=== PATIENT | female | born 2000 | race Caucasian/White ===

== ENCOUNTER 2024-04-08 21:35 | Emergency (ER) | payer MEDICAID, SELFPAY ==
[2024-04-08 22:05] VITALS: BP 144/84; PULSE 87; RESP 16; TEMP 37; O2SAT 96; BMI 34.0
[2024-04-08 22:09] LABS: Appearance Urine Clear (Clear); Bilirubin Urine Negative (Negative); Blood Urine 1+ (Negative); Color Urine Yellow (Yellow); Glucose Urine Negative (Negative); Ketones Urine Negative (Negative); Leukocyte Esterase Urine Negative (Negative); Nitrite Urine Negative (Negative); Protein Urine Negative (Negative); Specific Gravity Urine 1.015 (1.000-1.030); Urobilinogen Urine 0.2 (0.2-1.0)
[2024-04-08 22:14] LABS: RBC Urine 0-2 (0-2); WBC Urine 0-2 (0-5)
--- NOTE | 2024-04-08 22:24 | CRLHL7_ITS ---
For Patients: As a result of the Century Cures Act, medical imaging exams and procedure reports are released immediately into your electronic medical record. You may view this report before your referring provider. If you have questions, please contact your health care provider. INDICATION: Lower abdominal pain TECHNIQUE: CT abdomen and pelvis acquired with 89 cc of Isovue 370 IV contrast. COMPARISON: None. FINDINGS: Lower chest: Unremarkable. Liver: Unremarkable. Normal in size and attenuation. No suspicious masses. Gallbladder and bile ducts: Unremarkable. No stones or inflammation. No biliary dilatation. Pancreas: Unremarkable. No mass or inflammation. Spleen: Unremarkable. Normal in size. No masses. Adrenal glands: Unremarkable. No nodules. Kidneys: Unremarkable. No suspicious masses, stones, or hydronephrosis. GI tract: Unremarkable. Normal in caliber. No sign of mass or inflammation. Normal appendix. Vasculature: Abdominal aorta is normal in caliber. Mesenteric arteries are patent. Lymph nodes: No lymphadenopathy. Peritoneum/Abdominal Wall: Unremarkable. No free air or significant free fluid. Pelvis: Crenulated right ovarian cyst/follicle with a small volume of simple free fluid in the pelvic cul-de-sac. Bones: Unremarkable for age. IMPRESSION: 1. Crenulated right ovarian cyst the follicle. The adjacent small volume of free fluid in the pelvis suggest recent rupture. 2. No other acute findings within the abdomen and pelvis. Normal appendix. Please note that all CT scans at this facility use dose modulation, iterative reconstruction, and/or weight-based dosing when appropriate to reduce radiation dose to as low as reasonably achievable. Dictated by Sander Herrera MD @ 04/08/2024 11:17:34 PM (Electronically Signed)
[2024-04-08 22:41] LABS: Ur HCG Qualitative* Negative (Negative)
--- NOTE | 2024-04-08 22:51 | ED_ITS ---
HPI - Abdominal Pain General Date Seen: 04/08/24 Chief Complaint: Abdominal Pain Stated Complaint: Lower abdominal/pelvic pain Time Seen by Provider: 04/08/24 22:13 Source: patient Mode of arrival: ambulatory Limitations: no limitations History of Present Illness HPI narrative: Patient is a 23-year-old female presenting to the emergency department for lower abdominal pain. She states for the past week she has been having this lower abdominal pain. She described as a cramping sensation that radiates into her bilateral pelvis. Usually worse in the right lower quadrant though. Symptoms usually last about [address] She had an E visit in told may be constipation and was told to take MiraLax but she is not taking it at all yet. She did have a bowel movement today though she said during the bowel movement she had the sharp pain again this time it lasted longer and she states it felt like does get a make her pass out. Symptoms then resolved. She is now describes the pain as a 5/10 cramping sensation. Will have associated nausea with the pain but has not had any vomiting. Denies chest pain, shortness of breath, vaginal bleeding, vaginal discharge, diarrhea, dysuria, fevers, chills, headache. No other concerns noted. Review of Systems Status of ROS Reports: 10 or more systems reviewed and unremarkable except as noted in History and below [facility] Social History Smoking Status: Former smoker What tobacco products do you use: cigarettes Do you use any of these nicotine containing products: Vaping Products How often do you have a drink containing alcohol: 2-4 times a month AUDIT-C Alcohol total score: 2 Non-prescribed substance use: denies use Exam Narrative: Exam Narrative: Const: Well-nourished, Well-developed, in mild distress Eyes: PERRL, no conjunctival injection, and symmetrical lids HENT: Atraumatic external nose and ears. Moist mucous membranes. Neck: Symmetric, trachea midline, No thyromegaly. CVS: RRR, No murmurs or gallops. Peripheral pulses 2+ and equal in all extremities RESP: Unlabored respiratory effort. Clear to auscultation bilaterally. GI: Lower abdominal tenderness, Nondistended, No rebound or guarding. MSK:Extremities w/o deformity, Normal Active ROM Skin: Warm, Dry. No rashes or lesions. Neuro: Normal Muscle tone, No focal neurological deficits. Psych: Awake, Alert, & Oriented x3. Appropriate mood and affect. Const: Vital Signs, click to edit/add: Vital Signs - 24 hr 04/08/24 22:05 Temperature 98.6 F Pulse Rate [Pulse Oximeter] 87 Respiratory Rate 16 Blood Pressure [Ri ght Upper Arm] 144/84 H Pulse Oximetry 96 Oxygen Delivery Me thod Room Air Course Vital Signs Vital signs: Initial Vital Signs Temperature 98.6 F 04/08/24 22:05 Temperature Source Temporal Artery Scan 04/08/24 22:05 Pulse Rate 87 04/08/24 22:05 Respiratory Rate 16 04/08/24 22:05 Blood Pressure 144/84 H 04/08/24 22:05 Blood Pressure Mean 104 04/08/24 22:05 Blood Pressure Position Sitting 04/08/24 22:05 Pulse Oximetry 96 04/08/24 22:05 Oxygen Delivery Method Room Air 04/08/24 22:05 Vital Signs Temperature 98.6 F 04/08/24 22:05 Pulse Rate 87 04/08/24 22:05 Respiratory Rate 16 04/08/24 22:05 Blood Pressure 144/84 H 04/08/24 22:05 Pulse Oximetry 96 04/08/24 22:05 Oxygen Delivery Method Room Air 04/08/24 22:05 Temperature 98.6 F 04/08/24 22:05 Pulse Rate 87 04/08/24 22:05 Respiratory Rate 16 04/08/24 22:05 Blood Pressure 144/84 H 04/08/24 22:05 Pulse Oximetry 96 04/08/24 22:05 Oxygen Delivery Method Room Air 04/08/24 22:05 MDM - Abdominal Pain MDM Narrative Medical decision making narrative: Patient is a 23-year-old female presenting to the emergency department for lower abdominal pain. Differential at this time fluids appendicitis, constipation, colitis. With how long symptoms have been going on for in seems unlikely to be an ovarian torsion even an intermittent torsion. With no previous surgery in [facility] seems unlikely. Location is not consistent with gallbladder, liver, pancreatitis, diverticulitis. Will do a CT scan with IV contrast to further evaluate and if that is nondiagnostic will consider ordering a ultrasound. Urinalysis, CBC, urine caught test, COVID/flu/RSV, CMP all ordered. Lab work all returned showing no concerning abnormalities. No signs of UTI. She is not . Viral swabs are negative. CT scan returned showing a right ovarian cyst likely ruptured. There is a a small volume of free fluid in the pelvis. This ruptured cyst is likely what the pain she described prior to arrival was. At this time I do not believe an ultrasound is necessary in the emergency department. Her ovaries are not large enough to be concerning for possible torsion. No signs of anemia. Informed her of the findings and told her to follow-up with OB Gy[facility]. She is agreeable to this plan. Lab Data Labs: Lab Results 04/08/24 04/08/24 04/08/24 Range/Units 22:05 22:24 22:25 WBC (4.50-11.00) K/uL RBC (4.00-5.20) m/uL Hgb (12.0-16.0) gm/dL Hct (33.0-51.0) % MCV (80-100) fL MCH (26-34) pg MCHC (32-36) gm/dL RDW Coeff of Jama (11.5-15.5) % Plt Count (140-440) K/uL Neut % (Auto) (42.0-72.0) % Lymph % (Auto) (20-44) % Bowie % (Auto) (0.0-11.0) % Eos % (Auto) (0.0-7.0) % Baso % (Auto) (0.0-3.0) % Neut # (Auto) (1.7-7.0) K/uL Lymph # (Auto) (0.90-2.90) K/uL Bowie # (Auto) (0.00-0.90) K/UL Eos # (Auto) (0.00-0.50) K/uL Baso # (Auto) (0.00-0.30) K/uL Abs Immat Gran (auto) (0.00-0.30) K/uL Imm/Tot Granulo (auto) % Sodium 137 (135-149) mmol/L Potassium 3.6 (3.6-5.1) mmol/L Chloride 105 (96-114) mmol/L Carbon Dioxide 23 (20-32) mmol/L Anion Gap 9 (7-15) mEq/L BUN 15 (5-24) mg/dL Creatinine 0.6 (0.5-1.5) mg/dL Estimated Creat Clear 109.10 Estimated GFR 128 ml/min Glucose 121 H (60-115) mg/dL Calcium 9.4 (8.4-10.6) mg/dL Total Bilirubin 0.4 (0.1-1.5) mg/dL AST 22 (12-35) U/L ALT 20 (4-35) U/L Alkaline Phosphatase 78 (40-150) U/L Total Protein 6.9 (6.0-8.3) g/dL Albumin 4.2 (3.3-5.0) g/dL Urine Color Yellow (Yellow) Urine Appearance Clear (Clear) Urine pH 6.0 (5.0-8.5) Ur Specific [place] 1.015 (1.000-1.030) Urine Protein Negative (Negative) Urine Glucose (UA) Negative (Negative) Urine Ketones Negative (Negative) Urine Blood 1+ A (Negative) Urine Nitrite Negative (Negative) Urine Bilirubin Negative (Negative) Urine Urobilinogen 0.2 (0.2-1.0) Ur Leukocyte Esterase Negative (Negative) Urine RBC 0-2 (0-2) Urine WBC 0-2 (0-5) Ur Squamous Epith Cells None (None-Few) Urine Bacteria None (None) Urine HCG, Qual Negative (Negative) SARS-CoV-2 (PCR) (Negative) Influenza Type A (PCR) (Negative) Influenza Type B (PCR) (Negative) RSV (PCR) (Negative) Lab Acknowledgement Test Added 04/08/24 04/08/24 Range/Units 22:37 22:43 WBC 11.16 H (4.50-11.00) K/uL RBC 4.85 (4.00-5.20) m/uL Hgb 13.4 (12.0-16.0) gm/dL Hct 39.9 (33.0-51.0) % MCV 82 (80-100) fL MCH 28 (26-34) pg MCHC 34 (32-36) gm/dL RDW Coeff of Jama 14.2 (11.5-15.5) % Plt Count 333 (140-440) K/uL Neut % (Auto) 70.7 (42.0-72.0) % Lymph % (Auto) 21.7 (20-44) % Bowie % (Auto) 4.4 (0.0-11.0) % Eos % (Auto) 1.7 (0.0-7.0) % Baso % (Auto) 0.3 (0.0-3.0) % Neut # (Auto) 7.90 H (1.7-7.0) K/uL Lymph # (Auto) 2.40 (0.90-2.90) K/uL Bowie # (Auto) 0.50 (0.00-0.90) K/UL Eos # (Auto) 0.20 (0.00-0.50) K/uL Baso # (Auto) 0.00 (0.00-0.30) K/uL Abs Immat Gran (auto) 0.10 (0.00-0.30) K/uL Imm/Tot Granulo (auto) 1.2 % Sodium (135-149) mmol/L Potassium (3.6-5.1) mmol/L Chloride (96-114) mmol/L Carbon Dioxide (20-32) mmol/L Anion Gap (7-15) mEq/L BUN (5-24) mg/dL Creatinine (0.5-1.5) mg/dL Estimated Creat Clear Estimated GFR ml/min Glucose (60-115) mg/dL Calcium (8.4-10.6) mg/dL Total Bilirubin (0.1-1.5) mg/dL AST (12-35) U/L ALT (4-35) U/L Alkaline Phosphatase (40-150) U/L Total Protein (6.0-8.3) g/dL Albumin (3.3-5.0) g/dL Urine Color (Yellow) Urine Appearance (Clear) Urine pH (5.0-8.5) Ur Specific [place] (1.000-1.030) Urine Protein (Negative) Urine Glucose (UA) (Negative) Urine Ketones (Negative) Urine Blood (Negative) Urine Nitrite (Negative) Urine Bilirubin (Negative) Urine Urobilinogen (0.2-1.0) Ur Leukocyte Esterase (Negative) Urine RBC (0-2) Urine WBC (0-5) Ur Squamous Epith Cells (None-Few) Urine Bacteria (None) Urine HCG, Qual (Negative) SARS-CoV-2 (PCR) Negative SARS-CoV-2 (Negative) Influenza Type A (PCR) Negative PCR FLU A (Negative) Influenza Type B (PCR) Negative PCR FLU B (Negative) RSV (PCR) Negative PCR RSV (Negative) Lab Acknowledgement Imaging Data CT scan abdomen pelvis : Attestation: I have reviewed the pertinent imaging results. Radiologist's impression: 1. Crenulated right ovarian cyst the follicle. The adjacent small volume of free fluid in the pelvis suggest recent rupture. 2. No other acute findings within the abdomen and pelvis. Normal appendix. Please note that all CT scans at this facility use dose modulation, iterative reconstruction, and/or weight-based dosing when appropriate to reduce radiation dose to as low as reasonably achievable. Dictated by Sander Herrera MD @ 04/08/2024 11:17:34 PM Discharge Plan Discharge Clinical Impression: Ovarian cyst rupture Patient Disposition: Home, Self-Care Condition: Stable Instructions: Ovarian Cyst (ED) Additional Instructions: Your symptoms are likely from a ruptured ovarian cyst. You should follow-up with OB Gyne for this cyst. Return to emergency department for new or worsening symptoms. Take Tylenol and ibuprofen for pain. Follow Up/Referrals: Provider,Not a Local [Primary Care Provider] - Stand Alone Forms: [employer] Info Instructions
[2024-04-08 22:57] LABS: Basophils Percent Auto 0.3 % (0.0-3.0); Eosinophils Percent Auto 1.7 % (0.0-7.0); Hematocrit 39.9 % (33.0-51.0); Hemoglobin* 13.4 gm/dL (12.0-16.0); Immature Granulocytes Pct Auto 1.2 %; Lymphocytes Percent Auto 21.7 % (20-44); Mean Corpuscular HGB Conc 34 gm/dL (32-36); Mean Corpuscular Hemoglobin 28 pg (26-34); Mean Corpuscular Volume 82 fL (80-100); Monocytes Percent Auto 4.4 % (0.0-11.0); Neutrophils Percent Auto 70.7 % (42.0-72.0); Platelet Count* 333 K/uL (140-440); RDW Coefficient of Variation % 14.2 % (11.5-15.5); Red Blood Count 4.85 m/uL (4.00-5.20); White Blood Count* 11.16 K/uL (4.50-11.00)
[2024-04-08 22:59] LABS: Slide Review Reflex No
[2024-04-08 23:06] LABS: Albumin* 4.2 g/dL (3.3-5.0); Chloride* 105 mmol/L (96-114); Potassium* 3.6 mmol/L (3.6-5.1); Sodium* 137 mmol/L (135-149)
[2024-04-08 23:08] LABS: Creatinine* 0.6 mg/dL (0.5-1.5); Estimated Glomerular Filt Rate 128 ml/min
[2024-04-08 23:09] LABS: Alanine Aminotransferase* 20 U/L (4-35); Alkaline Phosphatase* 78 U/L (40-150); Anion Gap 9 mEq/L (7-15); Aspartate Amino Transferase* 22 U/L (12-35); Bilirubin Total* 0.4 mg/dL (0.1-1.5); Blood Urea Nitrogen* 15 mg/dL (5-24); Calcium* 9.4 mg/dL (8.4-10.6); Carbon Dioxide* 23 mmol/L (20-32); Glucose* 121 mg/dL (60-115); Total Protein* 6.9 g/dL (6.0-8.3)
[2024-04-08 23:15] LABS: PCR FLU A Negative PCR FLU A (Negative); PCR FLU B Negative PCR FLU B (Negative); PCR RSV Negative PCR RSV (Negative); SARS PCR* Negative SARS-CoV-2 (Negative)
[2024-04-08 23:34] VITALS: BP 132/70; PULSE 81; RESP 16; TEMP 37; O2SAT 96
== END 2024-04-08 23:34 | disposition home or self-care (01) ==
PROVIDERS: Emergency Provider Student in an Organized Health Care Education/Training Program
DX: N83.201 Unspecified ovarian cyst, right side (principal); K66.1 Hemoperitoneum
CPT/HCPCS: 36415; 74177; 80053; 81001; 81025; 85025; 87631; 99284; 99285; Q9967